=== PATIENT | female | born 1990 | race African-American/Black ===

== ENCOUNTER 2016-07-07 08:56 | Emergency (ER) | payer OTHER ==
--- NOTE | ~2016-07-07 | CR142 ---
[facility] A Service of [facility] RADIOLOGY TEXT RESULTS PATIENT: MIRIAM MAGUIRE LOCATION: [facility] : 89 UNIT #: [id number] AGE: [address]: Sarah Marley SEX: F ORDER DR: [id number] [facility] [address]. [place], [place] [address] [id number] E MR#: [id number] Acc #: [id number] NAME: MIRIAM MAGUIRE : 1990 SEX: F STUDY DATE/TIME: 07/07/2016 09:14 UNIT: [facility] ROOM: STUDY DESCRIPTION: CR Hand Min 3 Views Rt Attending Physician: Sarah Marley P.A.-C. Ordering Physician: Sarah Marley P.A.-C. Primary Care Physician: No Primary Care Physician MEDICAL IMAGING REPORT This report is preliminary unless electronic signature is present EXAM Right hand 3 views 07/07/2016 0914 hours. HISTORY Patient cut hand on glass this morning. Multiple lacerations to hand, wrist and face. COMPARISON 06/04/2010 FINDINGS AP, lateral and oblique views are performed with a gauze dressing at the palmar aspect of the thumb and hand. There is overall normal bone density. There is no fracture of the distal radius or ulna. The carpal bones, metacarpal and fingers are intact. There is no definite foreign body seen. IMPRESSION There is no acute fracture, dislocation or radiopaque foreign body. Dictated by... Bianka Harp M.D. THIS IS AN ELECTRONICALLY VERIFIED REPORT Bianka Harp M.D. at 07/07/2016 2:26 PM LAURIE/jay TD: 07/07/2016 12:39 JOB #: [id number] MEDICAL IMAGING REPORT Page 1 of 1 COPY
== END 2016-07-07 11:05 | disposition short-term general hospital (02) ==
LOC: CED 08:56 → CFTX 08:56 → CED 10:49 → CFTX 10:49
DX: S61.412A Laceration without foreign body of left hand, initial encounter (principal); S51.812A Laceration without foreign body of left forearm, initial encounter; F17.210 Nicotine dependence, cigarettes, uncomplicated; M41.9 Scoliosis, unspecified; W22.03XA Walked into furniture, initial encounter; Y92.9 Unspecified place or not applicable
CPT/HCPCS: 73130; 99285